=== PATIENT | female | born 1955 | race Caucasian/White ===

== ENCOUNTER 2020-02-11 13:47 | Emergency (ER) | payer OTHER, MEDICAID ==
[~2020-02-11] VITALS: Ht 160 cm; Wt 111.1 kg
[2020-02-11 14:14] VITALS: BP 137/62
[2020-02-11] MEDS ORDERED: KETOROLAC 30 MG/ML VIAL IM ONE (14:50)
[2020-02-11 16:29] VITALS: BP 137/62
== END 2020-02-11 16:29 | disposition home or self-care (01) ==
LOC: MED 13:47
DX: M54.5 Low back pain (principal); N39.0 Urinary tract infection, site not specified; E11.9 Type 2 diabetes mellitus without complications; I10 Essential (primary) hypertension; Z88.0 Allergy status to penicillin; Z88.5 Allergy status to narcotic agent; W18.30XA Fall on same level, unspecified, initial encounter; Y93.89 Activity, other specified; Y92.89 Other specified places as the place of occurrence of the external cause; Y99.8 Other external cause status
CPT/HCPCS: 72131; 81002; 87086; 99284; J1885; 96372

== ENCOUNTER 2022-05-02 12:52 | Inpatient (IN) | payer OTHER, MEDICAID ==
[~2022-05-02] VITALS: Ht 160 cm; Wt 106.6 kg
[2022-05-02 13:01] VITALS: BP 174/80
--- NOTE | 2022-05-02 13:05 | NUR ---
PATIENT BIBA TO BED 5
--- NOTE | 2022-05-02 13:20 | NUR ---
LAB AT BEDSIDE
--- NOTE | 2022-05-02 13:51 | NUR ---
XRAY AT BEDSIDE
[2022-05-02 14:03] LABS: ALBUMIN 2.8 g/dL (3.4-5.0); ANION GAP 11.6 (8-16); CARBON DIOXIDE 26.5 mmol/L (21-32); CREATININE 0.6 mg/dL (0.6-1.3); POTASSIUM 4.1 mmol/L (3.5-5.1); TOTAL BILIRUBIN 0.2 mg/dL (0.0-1.0)
[2022-05-02 14:05] LABS: BASOPHILS # (AUTO) 0.1 K/uL (0.00-0.22); EOSINOPHILS # (AUTO) 0.2 K/uL (0-0.4); EOSINOPHILS % (AUTO) 2.9 % (0.0-4.0); HEMATOCRIT 40.8 % (36-48); HEMOGLOBIN 13.2 g/dL (12.0-16.0); LYMPHOCYTES % (AUTO) 27.4 % (20.5-51.1); MEAN CORPUSCULAR HEMOGLOBIN 26 pg (27-31); MEAN CORPUSCULAR HGB CONC 32 g/dL (33-37); MEAN CORPUSCULAR VOLUME 78.8 fL (80-94); MONOCYTES # (AUTO) 0.7 K/uL (0.8-1.0); MONOCYTES % (AUTO) 9.8 % (1.7-9.3); NEUTROPHILS # (AUTO) 4.3 K/uL (1.8-7.7); NEUTROPHILS % (AUTO) 58.9 % (42.2-75.2); PLATELET COUNT (AUTO) 285 K/uL (140-450); RED BLOOD CELL COUNT(AUTO) 5.18 MIL/uL (4.20-5.40); RED CELL DISTRIBUTION WIDTH 17.7 % (11.6-13.7); WHITE BLOOD COUNT (AUTO) 7.3 K/uL (4.8-10.8)
[2022-05-02] MEDS ORDERED: CLONIDINE HYDROCHLORIDE 0.1 MG TAB PO ONE (14:15)
--- NOTE | 2022-05-02 14:44 | NUR ---
66YO FEMALE PT ROSALIND FROM HOME C/O DIZZINESS. PT STATES SHE HAS EPISODES OF DIZZINESS AND HEADACHES X3 DAYS, DENIES LOC . UPON ARRIVAL PT AMBULATORY W/ UNSTEADY GAIT. PT DENIES TAKING MEDICATION . PT REPORTS BEING COMPLIANT W/ MEDS BUT STATES SHE DID NOT HAVE BREAKFAST. DENIES CHEST PAIN, SOB OR N/V/D. 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 RESPIRATIONS EVEN AND UNLABORED. NO VISIBLE DISTRESS BED AT LOWEST POSITION , BED RAILS UP X2. HXDiabetes, Hx Hypertension ALLERGIEZ: MORPHINE, PNECILLIN Addendum: 05/03/22 at 1314 by PHSEP HX: ASTHMA, PTSD, GERD, HTN, STENT, DIABETES ALLERGIES: OPIOIDS, PENICILLIN
--- NOTE | 2022-05-02 14:55 | NUR ---
PT CHANGED INTO GOWN. URINE COLLECTED VIA BEDPAN.
[2022-05-02] MEDS ORDERED: PROCHLORPERAZINE 5 MG TAB PO ONE (15:45)
[2022-05-02 15:46] LABS: BILIRUBIN,URINE NEGATIVE (NEGATIVE); BLOOD, URINE NEGATIVE (NEGATIVE); COLOR,URINE YELLOW (YELLOW); LEUKOCYTE ESTERASE ,URINE 2+ (NEGATIVE); NITRITE, URINE NEGATIVE (NEGATIVE); UGLUCOSE NEGATIVE (NEGATIVE)
[2022-05-02 15:56] LABS: APPEARANCE,URINE HAZY (CLEAR)
[2022-05-02 16:24] LABS: RBC,URINE NONE SEEN /HPF (0-5); WBC,URINE 20-60 /HPF (0-5)
[2022-05-02] MEDS ORDERED: cefTRIAXone 1,000 MG VIAL ONE ×2 (17:21→18:23)
[2022-05-02] MEDS ORDERED: cefTRIAXone 1,000 MG in LIDOCAINE MPF 1% 2.1 ML IM ONE (17:55)
[2022-05-02] MEDS ORDERED: SULF-59 PO (17:58)
[2022-05-02] MEDS ORDERED: LIDOCAINE MPF 1% 5 ML ONE (18:23)
--- NOTE | 2022-05-02 19:14 | NUR ---
RECIEVED VERBAL ORDER FROM DR. BELLE FOR ADMIT ORDER, CARDIAC CONSULT AND CARDIAC DIET. ORDERS CARRIED OUT.
--- NOTE | 2022-05-02 19:22 | NUR ---
RAFAEL SWAB OBTAINED AND SENT TO LAB
--- NOTE | 2022-05-02 19:30 | NUR ---
REPORT GIVEN TO KOBY TOBIAS. ALL QUESTIONS ANSWERED. TRANSFER OF CARE AT THIS TIME
[2022-05-02] MEDS ORDERED: DOCUSATE SODIUM 100 MG GELCAP PO PRN (19:35)
[2022-05-02] MEDS ORDERED: POTASSIUM CHLORIDE 10 MEQ TABER PO PRN (19:35)
[2022-05-02] MEDS ORDERED: ONDANSETRON 4 MG/2 ML VIAL IVP PRN (19:35)
[2022-05-02] MEDS ORDERED: ZOLPIDEM 10 MG TAB PO PRN (19:35)
[2022-05-02] MEDS ORDERED: DEXTROSE 50% 50 ML SYR IVP PRN (19:40)
[2022-05-02] MEDS ORDERED: INSULIN LISPRO SLIDING SCALE 100 UNITS/ML VIAL SUBQ PRN (19:40)
[2022-05-02] MEDS ORDERED: CLONIDINE HYDROCHLORIDE 0.1 MG TAB PO PRN (19:45)
--- NOTE | 2022-05-02 20:00 | NUR ---
ASSISTED WITH POSITIONING FOR COMFORT
[2022-05-02] MEDS: lisinopriL 10 MG TAB PO SCH (20:20)
[2022-05-02] MEDS: BLOOD GLUCOSE MONITORING 1 DEV DEV FS SCH (21:32)
--- NOTE | 2022-05-02 23:39 | NUR ---
ASSISTED ONTO BEDPAN
[2022-05-03] MEDS ORDERED: MAG SULF 2000 MG/WATER PREMIX 50 ML IV PRN
--- NOTE | 2022-05-03 02:00 | NUR ---
RESTING COMFORTABLY WITH EYES CLOSED
--- NOTE | 2022-05-03 04:30 | NUR ---
AWAKE, UP TO W/C THEN TO BR, VOIDED THEN BACK TO BED AND MADE COMFORTABLE
[2022-05-03 06:53] LABS: BASOPHILS # (AUTO) 0.1 K/uL (0.00-0.22); EOSINOPHILS # (AUTO) 0.2 K/uL (0-0.4); HEMATOCRIT 38.1 % (36-48); HEMOGLOBIN 12.2 g/dL (12.0-16.0); LYMPHOCYTES # (AUTO) 1.8 K/uL (2.5-16.5); LYMPHOCYTES % (AUTO) 30.7 % (20.5-51.1); MEAN CORPUSCULAR HEMOGLOBIN 25 pg (27-31); MEAN CORPUSCULAR HGB CONC 32 g/dL (33-37); MEAN CORPUSCULAR VOLUME 78.8 fL (80-94); MONOCYTES # (AUTO) 0.6 K/uL (0.8-1.0); MONOCYTES % (AUTO) 9.9 % (1.7-9.3); NEUTROPHILS # (AUTO) 3.3 K/uL (1.8-7.7); NEUTROPHILS % (AUTO) 54.4 % (42.2-75.2); PLATELET COUNT (AUTO) 254 K/uL (140-450); RED BLOOD CELL COUNT(AUTO) 4.83 MIL/uL (4.20-5.40); RED CELL DISTRIBUTION WIDTH 17.7 % (11.6-13.7)
[2022-05-03 07:05] LABS: ANION GAP 10.6 (8-16); CARBON DIOXIDE 28.4 mmol/L (21-32); CREATININE 0.6 mg/dL (0.6-1.3)
--- NOTE | 2022-05-03 07:30 | NUR ---
REPORT RECEIVED FROM KOBY TOBIAS. ASSUMED CARE AT THIS TIME
[2022-05-03] MEDS: BLOOD GLUCOSE MONITORING 1 DEV DEV FS SCH ×4 (07:45→20:38)
--- NOTE | 2022-05-03 07:58 | NUR ---
pt provided w/ breakfast. pt awake and eating in bed
[2022-05-03] MEDS: lisinopriL 10 MG TAB PO SCH (09:00)
[2022-05-03] MEDS ORDERED: DEXL60EC PO (09:46)
[2022-05-03] MEDS ORDERED: PRAS10TA8 PO (09:46)
[2022-05-03] MEDS ORDERED: DOCU-2 PO (09:46)
[2022-05-03] MEDS ORDERED: REPA2TAB9 PO (09:46)
--- NOTE | 2022-05-03 10:18 | NUR ---
MD BELLE CONTACTED, MADE AWARE OF PT MED REFUSAL AND UPDATED ON PT STATUS. VERBAL ORDERS ADDED AND CARRIED OUT 1000ml NS @50ML/HR- ONCE 0.5 ATIVAN PRN Q4HRS
--- NOTE | 2022-05-03 10:30 | NUR ---
MD BELLE [phone]
[2022-05-03] MEDS: LORazepam 0.5 MG TAB PO PRN ×2 (11:13→19:58)
[2022-05-03] MEDS: NACL 0.9% 1,000 ML IV SCH (11:20)
--- NOTE | 2022-05-03 12:15 | NUR ---
PT PROVIDED W/ LUNCH. PT AWAKE , REPOSITIONED AND EATING IN BED.
--- NOTE | 2022-05-03 14:13 | NUR ---
PT WHEELCHAIR ASSISTED TO RESTROOM.
--- NOTE | 2022-05-03 14:20 | NUR ---
PT WHEELCHAIR ASSISTED BACK TO ROOM
[2022-05-03] MEDS ORDERED: hydrALAZINE 25 MG TAB PO PRN (15:20)
--- NOTE | 2022-05-03 16:20 | NUR ---
PUREWICK IN PLACE- CONTINUOUS MEDIUM SUCTIONING .
[2022-05-03] MEDS: ACETAMINOPHEN 325 MG TAB PO PRN (17:13)
--- NOTE | 2022-05-03 17:18 | NUR ---
PT REPOSITIONED AND PROVIDED WITH JUICE.
[2022-05-03] MEDS ORDERED: cefTRIAXone 1,000 MG VIAL ONE (18:09)
--- NOTE | 2022-05-03 18:30 | NUR ---
PT PROVIDED WITH LUNCH. PT REPOSITIONED AND EATING IN BED
--- NOTE | 2022-05-03 18:45 | NUR ---
Stephen arriola in ED - 05/03/22 at 1915 by PHSEP INFILTRATION NOTED AT IV SITE. IV REMOVED
--- NOTE | 2022-05-03 18:45 | NUR ---
INFILTRATION NOTED AT IV SITE. IV REMOVED. PT DENIES PAIN
--- NOTE | 2022-05-03 19:15 | NUR ---
REPORT GIVEN TO TONY TOBIAS. ALL QUESTIONS ANSWERED. TRANSFER OF CARE AT THIS TIME
--- NOTE | 2022-05-03 19:18 | NUR ---
pt is awake and alert. denies pain and discomfort at this time. all needs met. bed locked in lowest position, side rails x2 for safety.
--- NOTE | 2022-05-03 19:40 | NUR ---
charge nurse at bedside for iv attempt.
--- NOTE | 2022-05-03 20:26 | NUR ---
pt placed on a more comfortable bed. pt states she feels much better with that bed. all needs met at this time. bed locked in lowest position, side rails x for safety.
[2022-05-03] MEDS: VALSARTAN 80 MG TAB PO SCH (20:39)
--- NOTE | 2022-05-03 20:43 | NUR ---
bp 108/85 hr 46, bp meds held.
--- NOTE | 2022-05-03 20:43 | NUR ---
pt refused heparin. pt states "i dont take that, that's too strong".
--- NOTE | 2022-05-03 22:14 | NUR ---
pt appears to be resting with eyes closed. opens to sound. equal rise and fall of chest wall. pt continues on laboratory monitor. all needs met at this time. bed locked in lowest position, side rails x2 for safety.
--- NOTE | 2022-05-04 01:10 | NUR ---
pt appears to be resting with eyes closed. opens to sound. equal rise and fall of chest wall. pt continues on quality assurance monitor. all needs met at this time. bed locked in lowest position, side rails x2 for safety.
[2022-05-04] MEDS: ACETAMINOPHEN 325 MG TAB PO PRN (03:00)
--- NOTE | 2022-05-04 03:09 | NUR ---
pt is awake and alert talking to bed 06.
--- NOTE | 2022-05-04 05:19 | NUR ---
Stephen arriola in [facility] - 05/04/22 at 0520 by MEDHUBERT attempted to draw morning labs. stewart singh from lab updated.
--- NOTE | 2022-05-04 05:20 | NUR ---
attempted to draw morning labs. unable, johnathan from lab updated.
--- NOTE | 2022-05-04 05:40 | NUR ---
lab at bedside.
[2022-05-04 06:13] LABS: BASOPHILS % (AUTO) 0.8 % (0.0-2.0); EOSINOPHILS # (AUTO) 0.3 K/uL (0-0.4); EOSINOPHILS % (AUTO) 4.8 % (0.0-4.0); HEMATOCRIT 38.8 % (36-48); HEMOGLOBIN 12.5 g/dL (12.0-16.0); LYMPHOCYTES % (AUTO) 33.4 % (20.5-51.1); MEAN CORPUSCULAR HEMOGLOBIN 26 pg (27-31); MEAN CORPUSCULAR HGB CONC 32 g/dL (33-37); MEAN CORPUSCULAR VOLUME 79.1 fL (80-94); MONOCYTES # (AUTO) 0.6 K/uL (0.8-1.0); PLATELET COUNT (AUTO) 271 K/uL (140-450); RED BLOOD CELL COUNT(AUTO) 4.91 MIL/uL (4.20-5.40); RED CELL DISTRIBUTION WIDTH 17.9 % (11.6-13.7); WHITE BLOOD COUNT (AUTO) 5.9 K/uL (4.8-10.8)
--- NOTE | 2022-05-04 06:23 | NUR ---
pt appears to be resting with eyes closed. opens to sound. equal rise and fall of chest wall. 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 all needs met at this time. bed locked in lowest position, side rails x2 for safety.
[2022-05-04] MEDS: NACL 0.9% 1,000 ML IV SCH (06:33)
[2022-05-04 06:40] LABS: ANION GAP 11.5 (8-16); CARBON DIOXIDE 27.6 mmol/L (21-32); CREATININE 0.7 mg/dL (0.6-1.3); POTASSIUM 4.1 mmol/L (3.5-5.1)
--- NOTE | 2022-05-04 07:26 | NUR ---
Pt report given to sina olivas. Transfer of care at this time.
--- NOTE | 2022-05-04 07:28 | NUR ---
Report received from JATINDER Douglas for transfer of care.
--- NOTE | 2022-05-04 07:31 | NUR ---
Stephen arriola in [facility] - 05/04/22 at 0831 by LINDA Report recieved from JATINDER Douglas for transfer of care.
--- NOTE | 2022-05-04 07:32 | NUR ---
Patient ambulated to the restroom with steady gait.
[2022-05-04] MEDS: BLOOD GLUCOSE MONITORING 1 DEV DEV FS SCH ×4 (07:49→21:27)
--- NOTE | 2022-05-04 07:50 | NUR ---
Patient appears to be resting comfortably in bed. Respirations even and unlabored.
--- NOTE | 2022-05-04 08:42 | NUR ---
Patient will be admitted to care of Dr. Ly. Admited to Telemetry. Will go to room 106-B. Belongings list completed. Report to JATINDER Hill.
--- NOTE | 2022-05-04 08:45 | NUR ---
PT ARRIVED IN THE UNIT IN BED.[id number]
--- NOTE | 2022-05-04 09:01 | NUR ---
PATIENT HAS BEEN SCREENED AND CATEGORIZED MODERATE NUTRITION RISK. PATIENT WILL BE SEEN WITHIN 3-5 DAYS OF ADMISSION. [address] Addendum: 05/04/22 at [address] FNS CONSULT HAS BEEN RECEIVED FOR MALNUTRITION. PATIENT HAS BEEN RE-SCREENED HIGH RISK AND WILL BE SEEN WITHIN 1-2 DAYS OF RECEIVING THE FNS CONSULT. WILLIAM BARRIOS RD
--- NOTE | 2022-05-04 09:09 | NUR ---
The patient's care was reviewed and supervised by Rubi Nuñez, RN, RN.
[2022-05-04] MEDS: PANTOPRAZOLE 40 MG INJ VIAL IVP SCH (09:53)
[2022-05-04] MEDS: VALSARTAN 80 MG TAB PO SCH ×2 (09:53→21:44)
[2022-05-04] MEDS: ECOTRIN 81 MG TABEC PO SCH (09:54)
--- NOTE | 2022-05-04 12:00 | NUR ---
PT REFUSED HEPARIN, FROM MORNING SHIFT. [id number]
--- NOTE | 2022-05-04 12:03 | NUR ---
DC PLANNING SW ATTEMPTED TO MEET PATIENT, HOWEVER, DIRECTOR OF PHYSICIAN PRACTICES AT BEDSIDE. SW TO FOLLOW UP. Addendum: 05/04/22 at 1622 by Donna REDDY SW MET WITH PT AT BEDSIDE TO GATHER COLLATERAL INFORMATION. PT REPORTS LIVING IN GROUND FLOOR APT WITH HER AT THE ADDRESS LISTED ON FILE. PATIENT DENIED HAVING AD IN PLACE AND ACCEPTED AD OFFERED BY SW. PATIENT REPORTS MEETING WITH HER TEAM OF DOCTORS CONSISTENTLY. PT REPORTS BEING MEDICATION COMPLIANT AND DENIES BARRIERS TO ACCESSING NEEDED MEDICATIONS. PT REPORTS THAT SHE IS RECEIVING PHYSICAL THX SERVICES W/THERESA JOHNSON. PT REQUIRES ASSISTANCE WITH ADL'S AND UTILIZES FWW AND BATH CHAIR. PT GRANDDAUGHTER IS HER [employer] WORKER AND IS PERMITTED 20HRS/WEEKLY. PT REPORTS ADEQUATE FAMILY SUPPORT AND DENIES FOOD INSECURITY. PATIENT REPORTS THAT GRANDSON OR NIECE WILL PROVIDE TRANSPORTATION WHEN CLEARED FOR DC. SW INQUIRED ON ADDITIONAL RESOURCES NEEDED, PATIENT DECLINED AT THIS TIME.
[2022-05-04 12:13] VITALS: BP 138/60
--- NOTE | 2022-05-04 14:51 | NUR ---
DC PLANNING: THE PATIENT WAS BIBA FROM HOME WITH C/O DIZZINESS, LIGHTHEADEDNESS AND SOB, 2 WEEK H/O OF HTN AND HEADACHE. H/O DM AND HTN, BNP 330, EKG SHOWS SINUS JULIAN, B/P 174/80. UA+, PATIENT GIVEN ROCEPHIN AND CATAPRES IN THE ED. ORDERS FOR CARDIOLOGY CONSULT, H/O CAD WITH CORONARY STENTING, HTN, DM AND DYSLIPIDEMIA. CM SPOKE WITH THE PATIENT AT BEDSIDE AND CONFIRMED HER ADDRESS AND PHONE NUMBER. SHE LIVES WITH HER IN A GROUND FLOOR APARTMENT AND HAS AN [facility] WORKER WHO IS HER NIECE EMORY, 20 HOURS/WEEK. SHE HAS DME OF A 4 WHEEL WALKER AND SHOWER BENCH AND SEES HER PMD REGULARLY. SHE ALSO SEES DR MIRANDA, ACCOUNTS PAYABLE LEAD, DR CALLES FOR CARDIOLOGY, DR KELLY IN [place]. SHE HAS BEEN GOING TO [facility] FOR THE LAST TWO WEEKS FOR P.T., NO HOME HEALTH. HER OR NIECE WILL PROVIDE TRANSPORT HOME WHEN THE PATIENT IS CLINICALLY STABLE, CARLOS WILL FOLLOW.
[2022-05-04] MEDS: LORazepam 0.5 MG TAB PO PRN (14:53)
[2022-05-04 16:00] VITALS: BP 150/65
--- NOTE | 2022-05-04 16:39 | NUR ---
05/04/22 RD INITIAL ASSESSMENT COMPLETED PLEASE REFER TO NUTRITION ASSESSMENT UNDER CARE ACTIVITY FOR ESTIMATED NUTRITIONAL NEEDS. 1. RECOMMEND CARDIAC+CCHO 60GM DIET TOLERATED 2. PROVIDED NUTRITION EDUCATION ON DIABETES, CELIAC DISEASE AND ACID REFLUX 3. RD TO FOLLOW-UP 7 DAYS, LOW RISK WILLIAM BARRIOS RD Addendum: 05/04/22 at [address] RECOMMEND GLUTEN-FREE DIET WELL D/T CELIAC DISEASE
--- NOTE | 2022-05-04 19:35 | NUR ---
RECEIVED PATIENT FROM AM NURSE FOR CONTINUITY OF CARE.PT IS STABLE
[2022-05-04 20:00] VITALS: BP 135/60
--- NOTE | 2022-05-04 21:00 | NUR ---
PT REFUSED HEPARIN SODIUM. EXPLAINED THE RISK AND BENEFITS BUT PT STILL REFUSED
--- NOTE | 2022-05-05 01:30 | NUR ---
PATIENT SLEEPING AT THIS TIME,NO DISTRESS NOTED
[2022-05-05] MEDS: NACL 0.9% 1,000 ML IV SCH (01:58)
[2022-05-05 04:00] VITALS: BP 142/49
--- NOTE | 2022-05-05 06:15 | NUR ---
PATIENT IS AWAKE, ASSISTED TO BEDSIDE COMMODE,TOLERATED WELL ,NO DISTRESS NOTED
[2022-05-05] MEDS: BLOOD GLUCOSE MONITORING 1 DEV DEV FS SCH (06:46)
--- NOTE | 2022-05-05 07:24 | NUR ---
RECEIVED ENDORSEMENT FROM MEAT INSPECTOR NURSE FOR CONTINUITY OF CARE. PATIENT ASLEEP BUT ABLE TO WAKE UP WHEN CALLED DENIES ANY DISCOMFORT. RESPIRATION EVEN AND NOT LABORED NO SHORTNESS OF BREATH ON ROOM AIR. IV SITE ON RIGHT UPPER ARM SELIN 24 RUNNING NS AT 50 CC/HOUR. NO SIGN AND SYMPTOMS OF INFILTRATE OR SWELLING. CALL LIGHT WITH IN EASY REACH.
[2022-05-05 07:32] LABS: BASOPHILS % (AUTO) 0.8 % (0.0-2.0); EOSINOPHILS # (AUTO) 0.3 K/uL (0-0.4); EOSINOPHILS % (AUTO) 5.3 % (0.0-4.0); HEMATOCRIT 37.6 % (36-48); LYMPHOCYTES # (AUTO) 1.9 K/uL (2.5-16.5); LYMPHOCYTES % (AUTO) 31.4 % (20.5-51.1); MEAN CORPUSCULAR HEMOGLOBIN 25 pg (27-31); MEAN CORPUSCULAR HGB CONC 32 g/dL (33-37); MEAN CORPUSCULAR VOLUME 79.8 fL (80-94); MONOCYTES # (AUTO) 0.6 K/uL (0.8-1.0); MONOCYTES % (AUTO) 9.5 % (1.7-9.3); NEUTROPHILS # (AUTO) 3.2 K/uL (1.8-7.7); PLATELET COUNT (AUTO) 275 K/uL (140-450); RED BLOOD CELL COUNT(AUTO) 4.71 MIL/uL (4.20-5.40); RED CELL DISTRIBUTION WIDTH 17.4 % (11.6-13.7)
[2022-05-05 07:34] LABS: ANION GAP 12.1 (8-16); CREATININE 0.6 mg/dL (0.6-1.3); POTASSIUM 4.1 mmol/L (3.5-5.1)
[2022-05-05 08:00] VITALS: BP 121/55
--- NOTE | 2022-05-05 08:00 | NUR ---
Patient's Plan of Care was discussed and reviewed with CLINICAL TEAM MANAGER: JASMINE. WILL CONTINUE WITH CURRENT POC.
[2022-05-05] MEDS: PANTOPRAZOLE 40 MG INJ VIAL IVP SCH (09:02)
--- NOTE | 2022-05-05 09:13 | NUR ---
PATIENT REFUSED HEPARIN EVEN WITH ENCOURAGEMENT AND EXPLANATION OF RISK AND BENEFIT OFFERED 3X.
--- NOTE | 2022-05-05 09:17 | NUR ---
PATIENT COMPLAIN OF IRRITATION AND RASH ON ABDOMINAL FOLD AND GROIN AREA REQUESTING FOR NYSTATIN POWDER INFORM DR. CARDENAS WAITING FOR RESPONSE.
[2022-05-05] MEDS: ECOTRIN 81 MG TABEC PO SCH (09:29)
[2022-05-05] MEDS: VALSARTAN 80 MG TAB PO SCH (09:31)
[2022-05-05] MEDS ORDERED: SULF-59 PO (10:52)
[2022-05-05] MEDS ORDERED: VALS80TA2 PO (10:52)
[2022-05-05] MEDS ORDERED: ASPI-1822 PO (10:52)
[2022-05-05 10:54] VITALS: BP 121/55
--- NOTE | 2022-05-05 11:15 | NUR ---
REFUSED BLOOD SUGAR CHECKED.
[2022-05-05] MEDS ORDERED: MAGNESIUM OXIDE 400 MG TAB PO SCH (11:22)
[2022-05-05] MEDS ORDERED: MAGNESIUM OXIDE 400 MG TAB PO ONE (11:25)
--- NOTE | 2022-05-05 12:00 | NUR ---
PATIENT ALERT ORIENTED ON STABLE CONDITION NO DIZZINESS NOTED. MAG OX GIVEN AND NYSTATIN POWDER APPLIED TO AFFECTED AREA. DISCHARGE PACKET GIVE WITH INSTRUCTION VERBALIZED UNDERSTANDING. NAME BAND AND IV REMOVED WITH CATHETER INTACT. ALL BELONGING TAKE N BY PATIENT. WHEELED OUTSIDE TO HER NIECE PRIVATE VEHICLE.
[2022-05-05] MEDS ORDERED: NYSTATIN POW 100 MU/GM 15 GM BTL TP SCH ×2 (21:00)
== END 2022-05-05 12:00 | disposition home or self-care (01) | DRG 308 ==
LOC: MED 12:52 → MTU 19:14
PROVIDERS: ADMIT Family Medicine; ATTEND Family Medicine
DX: R00.1 Bradycardia, unspecified (principal); E43 Unspecified severe protein-calorie malnutrition; N39.0 Urinary tract infection, site not specified; Z68.41 Body mass index [BMI] 40.0-44.9, adult; I10 Essential (primary) hypertension; I25.10 Atherosclerotic heart disease of native coronary artery without angina pectoris; Z20.822 Contact with and (suspected) exposure to COVID-19; E11.9 Type 2 diabetes mellitus without complications; Z88.5 Allergy status to narcotic agent; Z88.0 Allergy status to penicillin; Z91.018 Allergy to other foods; Z79.899 Other long term (current) drug therapy
CPT/HCPCS: 36415; 71045; 80048; 80053; 81001; 82948; 83735; 83880; 84484; 85025; 87081; 87086; 93005; 96372; 96374; 99285; C9113; J0696; J1644; J2001; J7060; Q0092; Q0163; Q0164

== ENCOUNTER 2023-08-15 08:58 | Emergency (ER) | payer OTHER, MEDICAID ==
[~2023-08-15] VITALS: Ht 160 cm; Wt 99.8 kg
[~2023-08-15 08:58] MED LIST: ASPI-1822 PO; DEXL60EC PO; DOCU-2 PO; PRAS10TA8 PO; REPA2TAB9 PO; SULF-59 PO; VALS80TA2 PO
[2023-08-15 08:59] VITALS: PULSE 89; RESP 18; TEMP 98.2; O2SAT 98
[2023-08-15 09:36] LABS: BASOPHILS # (AUTO) 0.1 K/uL (0.00-0.22); BASOPHILS % (AUTO) 1.1 % (0.0-2.0); EOSINOPHILS # (AUTO) 0.4 K/uL (0-0.4); EOSINOPHILS % (AUTO) 5.8 % (0.0-4.0); HEMATOCRIT 37.8 % (36-48); HEMOGLOBIN 12.1 g/dL (12.0-16.0); LYMPHOCYTES % (AUTO) 30.6 % (20.5-51.1); MEAN CORPUSCULAR HEMOGLOBIN 27 pg (27-31); MEAN CORPUSCULAR HGB CONC 32 g/dL (33-37); MEAN CORPUSCULAR VOLUME 83.2 fL (80-94); MONOCYTES # (AUTO) 0.6 K/uL (0.8-1.0); MONOCYTES % (AUTO) 8.4 % (1.7-9.3); NEUTROPHILS # (AUTO) 3.6 K/uL (1.8-7.7); NEUTROPHILS % (AUTO) 54.1 % (42.2-75.2); PLATELET COUNT (AUTO) 293 K/uL (140-450); RED BLOOD CELL COUNT(AUTO) 4.54 MIL/uL (4.20-5.40); RED CELL DISTRIBUTION WIDTH 14.9 % (11.6-13.7); WHITE BLOOD COUNT (AUTO) 6.6 K/uL (4.8-10.8)
[2023-08-15] MEDS ORDERED: ONDANSETRON 4 MG/2 ML VIAL IVP ONE ×2 (09:50→14:05)
[2023-08-15 10:23] LABS: ALANINE AMINOTRANSFERASE 15 U/L (12-78); ALBUMIN 2.6 g/dL (3.4-5.0); ALKALINE PHOSPHATASE 85 U/L (50-136); ANION GAP 10.6 (8-16); ASPARTATE AMINOTRANSFERASE 13 U/L (15-37); CALCIUM 8.5 mg/dL (8.5-10.1); CARBON DIOXIDE 29.1 mmol/L (21-32); CHLORIDE 102 mmol/L (98-107); CREATINE KINASE, TOTAL 29 U/L (26-192); CREATININE 0.8 mg/dL (0.6-1.3); GFR ARICAN-AMERICAN 91 mL/min (>90); GFR NON ARICAN-AMERICAN 75 mL/min (>90); GLUCOSE 196 mg/dL (74-106); POTASSIUM 4.7 mmol/L (3.5-5.1); SODIUM SERUM 137 mmol/L (136-145); TOTAL BILIRUBIN 0.4 mg/dL (0.0-1.0); TOTAL PROTEIN, SERUM 6.5 g/dL (6.4-8.2); UREA NITROGEN, BLOOD 19 mg/dL (7-18)
[2023-08-15] MEDS ORDERED: ONDANSETRON 4 MG/2 ML VIAL ONE (11:15)
[2023-08-15 12:24] LABS: APPEARANCE,URINE CLEAR (CLEAR); BILIRUBIN,URINE NEGATIVE (NEGATIVE); BLOOD, URINE NEGATIVE (NEGATIVE); COLOR,URINE YELLOW (YELLOW); LEUKOCYTE ESTERASE ,URINE TRACE (NEGATIVE); NITRITE, URINE NEGATIVE (NEGATIVE); PROTEIN,URINE NEGATIVE (NEGATIVE); UGLUCOSE NEGATIVE (NEGATIVE); UROBILINOGEN,URINE 0.2 EU/dL (0.2 - 1)
[2023-08-15] MEDS ORDERED: MORPHINE SULFATE 4 MG/ML SYR IVP ONE (13:45)
[2023-08-15] MEDS ORDERED: ACET-10509 PO (13:50)
[2023-08-15 15:41] VITALS: BP 122/64; PULSE 93; RESP 14; TEMP 98.2; O2SAT 100
== END 2023-08-15 15:41 | disposition home or self-care (01) ==
LOC: MED 08:58
DX: S93.602A Unspecified sprain of left foot, initial encounter (principal); S80.12XA Contusion of left lower leg, initial encounter; E11.9 Type 2 diabetes mellitus without complications; I10 Essential (primary) hypertension; E78.00 Pure hypercholesterolemia, unspecified; Z90.710 Acquired absence of both cervix and uterus; Z79.899 Other long term (current) drug therapy; Z79.82 Long term (current) use of aspirin; Z79.2 Long term (current) use of antibiotics; Z88.0 Allergy status to penicillin; Z88.5 Allergy status to narcotic agent; Z91.02 Food additives allergy status; W18.39XA Other fall on same level, initial encounter; Y93.89 Activity, other specified; Y92.002 Bathroom of unspecified non-institutional (private) residence as the place of occurrence of the external cause; Y99.8 Other external cause status
CPT/HCPCS: 36415; 72110; 72170; 73562; 73630; 80053; 81003; 82550; 84484; 85025; 93005; 93971; 96374; 96375; 96376; 99285; J2270; J2405; Q0092

== ENCOUNTER 2023-09-12 13:12 | Emergency (ER) | payer OTHER, MEDICAID ==
[~2023-09-12] VITALS: Ht 160 cm; Wt 97.5 kg
[~2023-09-12 13:12] MED LIST changes: +ACET-10509 PO
[2023-09-12 15:12] VITALS: BP 112/64; PULSE 74; RESP 18; O2SAT 95
[2023-09-12] MEDS ORDERED: LACT-103 PO (16:20)
[2023-09-12] MEDS ORDERED: SODIUM PHOSPHATE 118 ML ENEM RC ONE (16:25)
[2023-09-12] MEDS ORDERED: KETOROLAC 60 MG/2 ML VIAL IM ONE (19:50)
[2023-09-12 20:54] VITALS: BP 151/76; PULSE 78; RESP 17; TEMP 97.3; O2SAT 96
== END 2023-09-12 20:54 | disposition home or self-care (01) ==
LOC: MED 13:12
DX: K59.00 Constipation, unspecified (principal); I11.9 Hypertensive heart disease without heart failure; E11.9 Type 2 diabetes mellitus without complications; Z79.4 Long term (current) use of insulin; Z79.899 Other long term (current) drug therapy; Z88.0 Allergy status to penicillin; Z88.8 Allergy status to other drugs, medicaments and biological substances
CPT/HCPCS: 74176; 96372; 99285; J1885

== ENCOUNTER 2023-10-22 15:07 | Inpatient (IN) | payer OTHER, MEDICAID ==
[~2023-10-22] VITALS: Ht 160 cm; Wt 92.5 kg
[~2023-10-22 15:07] MED LIST changes: +LACT-103 PO
[2023-10-22 15:15] VITALS: BP 161/51; PULSE 84; RESP 16; TEMP 98.1; O2SAT 98
[2023-10-22] MEDS: LEVOFLOXACIN 500 MG/D5W PREMIX 100 ML IV ONE (15:53)
[2023-10-22] MEDS: NACL 0.9% 1,000 ML IV SCH ×2 (15:54→17:43)
[2023-10-22 15:56] LABS: BASOPHILS # (AUTO) 0.1 K/uL (0.00-0.22); BASOPHILS % (AUTO) 0.8 % (0.0-2.0); EOSINOPHILS # (AUTO) 0.3 K/uL (0-0.4); EOSINOPHILS % (AUTO) 3.7 % (0.0-4.0); HEMATOCRIT 39.6 % (36-48); HEMOGLOBIN 13.4 g/dL (12.0-16.0); LYMPHOCYTES # (AUTO) 2.1 K/uL (2.5-16.5); LYMPHOCYTES % (AUTO) 31.1 % (20.5-51.1); MEAN CORPUSCULAR HEMOGLOBIN 28 pg (27-31); MEAN CORPUSCULAR HGB CONC 34 g/dL (33-37); MEAN CORPUSCULAR VOLUME 82.5 fL (80-94); MONOCYTES # (AUTO) 0.6 K/uL (0.8-1.0); MONOCYTES % (AUTO) 8.7 % (1.7-9.3); NEUTROPHILS # (AUTO) 3.8 K/uL (1.8-7.7); NEUTROPHILS % (AUTO) 55.7 % (42.2-75.2); PLATELET COUNT (AUTO) 317 K/uL (140-450); RED CELL DISTRIBUTION WIDTH 14.8 % (11.6-13.7); WHITE BLOOD COUNT (AUTO) 6.8 K/uL (4.8-10.8)
[2023-10-22 16:07] LABS: ANION GAP 9.1 (8-16); CARBON DIOXIDE 29.9 mmol/L (21-32); CREATININE 0.6 mg/dL (0.6-1.3)
[2023-10-22 16:16] LABS: LACTIC ACID 1.5 mmol/L (0.4-2.0)
[2023-10-22] MEDS: LORazepam 1 MG TAB PO PRN (17:43)
[2023-10-22] MEDS: KETOROLAC 30 MG/ML VIAL IVP ONE (17:45)
[2023-10-22 19:07] LABS: APPEARANCE,URINE CLEAR (CLEAR); BILIRUBIN,URINE NEGATIVE (NEGATIVE); BLOOD, URINE NEGATIVE (NEGATIVE); COLOR,URINE YELLOW (YELLOW); LEUKOCYTE ESTERASE ,URINE NEGATIVE (NEGATIVE); NITRITE, URINE POSITIVE (NEGATIVE); PROTEIN,URINE NEGATIVE (NEGATIVE); UGLUCOSE NEGATIVE (NEGATIVE); UROBILINOGEN,URINE 0.2 EU/dL (0.2 - 1)
[2023-10-22 19:40] LABS: BACTERIA,URINE 10-30 (MOD) /HPF (None Seen); RBC,URINE 0-5 /HPF (0-5); WBC,URINE 0-5 /HPF (0-5)
[2023-10-22 19:41] LABS: SQUAMOUS EPITHELIAL CELL,UR 4-10 (MOD) /LPF (0-3 (FEW))
[2023-10-22 19:49] VITALS: O2SAT 98
[2023-10-22 20:29] LABS: FLU A ANTIGEN negative (NEGATIVE); FLU B ANTIGEN NEGATIVE (NEGATIVE)
[2023-10-22] MEDS: ZOLPIDEM 5 MG TAB PO PRN (22:40)
[2023-10-23 01:00] VITALS: BP 144/42; PULSE 87; RESP 18; TEMP 98.7; O2SAT 94
[2023-10-23 01:13] VITALS: PULSE 74; RESP 18; O2SAT 98
[2023-10-23 04:00] VITALS: BP 155/47; PULSE 72; RESP 17; TEMP 98; O2SAT 95
[2023-10-23 08:00] VITALS: BP 148/47; PULSE 65; RESP 16; RESP 18; TEMP 97.2; O2SAT 95
[2023-10-23 08:15] LABS: BASOPHILS % (AUTO) 0.8 % (0.0-2.0); EOSINOPHILS # (AUTO) 0.4 K/uL (0-0.4); EOSINOPHILS % (AUTO) 6.9 % (0.0-4.0); HEMATOCRIT 36.1 % (36-48); LYMPHOCYTES # (AUTO) 2.1 K/uL (2.5-16.5); LYMPHOCYTES % (AUTO) 33.6 % (20.5-51.1); MEAN CORPUSCULAR HEMOGLOBIN 28 pg (27-31); MEAN CORPUSCULAR HGB CONC 33 g/dL (33-37); MEAN CORPUSCULAR VOLUME 83.4 fL (80-94); MONOCYTES # (AUTO) 0.7 K/uL (0.8-1.0); MONOCYTES % (AUTO) 10.6 % (1.7-9.3); NEUTROPHILS % (AUTO) 48.1 % (42.2-75.2); PLATELET COUNT (AUTO) 280 K/uL (140-450); RED BLOOD CELL COUNT(AUTO) 4.33 MIL/uL (4.20-5.40); RED CELL DISTRIBUTION WIDTH 14.8 % (11.6-13.7); WHITE BLOOD COUNT (AUTO) 6.3 K/uL (4.8-10.8)
[2023-10-23 08:42] LABS: ALBUMIN 2.1 g/dL (3.4-5.0); ANION GAP 9.3 (8-16); CALCIUM 8.5 mg/dL (8.5-10.1); CARBON DIOXIDE 28.4 mmol/L (21-32); CREATININE 0.5 mg/dL (0.6-1.3); POTASSIUM 3.7 mmol/L (3.5-5.1); TOTAL BILIRUBIN 0.3 mg/dL (0.0-1.0); TOTAL PROTEIN, SERUM 5.9 g/dL (6.4-8.2)
[2023-10-23] MEDS ORDERED: DEXTROSE 50% 50 ML SYR IVP PRN (09:35)
[2023-10-23] MEDS: DOCUSATE SODIUM 100 MG GELCAP PO SCH (09:39)
[2023-10-23] MEDS: VALSARTAN 80 MG TAB PO SCH (10:19)
[2023-10-23] MEDS: PANTOPRAZOLE 40 MG INJ VIAL IVP SCH (10:31)
[2023-10-23] MEDS ORDERED: MAGNESIUM HYDROXIDE 2400 MG/30 ML UDC PO PRN ×3 (11:15→14:55)
[2023-10-23] MEDS: BLOOD GLUCOSE MONITORING 1 DEV DEV FS SCH (11:41)
[2023-10-23 16:00] VITALS: BP 170/62; PULSE 68; RESP 18; TEMP 97.5; O2SAT 95
[2023-10-23] MEDS: MAGNESIUM HYDROXIDE 2400 MG/30 ML UDC PO PRN (16:05)
[2023-10-23] MEDS: CLOPIDOGREL 75 MG TAB PO SCH (16:05)
[2023-10-23] MEDS: hydrALAZINE 25 MG TAB PO PRN (16:08)
[2023-10-23] MEDS: amLODIPine 5 MG TAB PO SCH (17:04)
[2023-10-23] MEDS: LEVOFLOXACIN 500 MG/D5W PREMIX 100 ML IV SCH (17:06)
[2023-10-23 20:00] VITALS: PULSE 75; RESP 17; O2SAT 95
[2023-10-23] MEDS: NYSTATIN POW 100 MU/GM 15 GM BTL TP SCH (21:00)
[2023-10-24] VITALS: BP 135/45; PULSE 75; RESP 17; TEMP 98.5; O2SAT 95
[2023-10-24 06:09] LABS: BASOPHILS # (AUTO) 0.1 K/uL (0.00-0.22); BASOPHILS % (AUTO) 0.8 % (0.0-2.0); EOSINOPHILS # (AUTO) 0.6 K/uL (0-0.4); EOSINOPHILS % (AUTO) 8.5 % (0.0-4.0); HEMATOCRIT 35.5 % (36-48); HEMOGLOBIN 11.7 g/dL (12.0-16.0); LYMPHOCYTES # (AUTO) 2.4 K/uL (2.5-16.5); LYMPHOCYTES % (AUTO) 33.5 % (20.5-51.1); MEAN CORPUSCULAR HEMOGLOBIN 27 pg (27-31); MEAN CORPUSCULAR HGB CONC 33 g/dL (33-37); MEAN CORPUSCULAR VOLUME 83.4 fL (80-94); MONOCYTES # (AUTO) 0.8 K/uL (0.8-1.0); MONOCYTES % (AUTO) 10.3 % (1.7-9.3); NEUTROPHILS # (AUTO) 3.4 K/uL (1.8-7.7); NEUTROPHILS % (AUTO) 46.9 % (42.2-75.2); PLATELET COUNT (AUTO) 285 K/uL (140-450); RED BLOOD CELL COUNT(AUTO) 4.25 MIL/uL (4.20-5.40); RED CELL DISTRIBUTION WIDTH 14.5 % (11.6-13.7); WHITE BLOOD COUNT (AUTO) 7.3 K/uL (4.8-10.8)
[2023-10-24 06:40] LABS: ANION GAP 9.2 (8-16); CALCIUM 8.5 mg/dL (8.5-10.1); CARBON DIOXIDE 26.5 mmol/L (21-32); CREATININE 0.4 mg/dL (0.6-1.3); POTASSIUM 3.7 mmol/L (3.5-5.1); TOTAL BILIRUBIN 0.2 mg/dL (0.0-1.0); TOTAL PROTEIN, SERUM 5.9 g/dL (6.4-8.2)
[2023-10-24 08:00] VITALS: BP 140/45; PULSE 61; PULSE 80; RESP 18; TEMP 98.4; O2SAT 97; O2SAT 98
[2023-10-24] MEDS ORDERED: SODIUM PHOSPHATE 118 ML ENEM RC SCH (09:55)
[2023-10-24] MEDS: INSULIN LISPRO SLIDING SCALE 100 UNITS/ML VIAL SUBQ PRN (12:02)
[2023-10-24] MEDS: ONDANSETRON 4 MG/2 ML VIAL IVP PRN (13:51)
[2023-10-24] MEDS: MORPHINE SULFATE 2 MG/ML SYR IVP PRN (13:53)
[2023-10-24 16:00] VITALS: BP 134/41; PULSE 71; RESP 18; TEMP 97.8; O2SAT 95
[2023-10-24 20:00] VITALS: PULSE 79; RESP 17; O2SAT 93
[2023-10-25] VITALS: BP 147/41; PULSE 79; RESP 17; TEMP 98.4; O2SAT 93
[2023-10-25] MEDS: SODIUM PHOSPHATE 118 ML ENEM RC ONE (00:28)
[2023-10-25 06:09] LABS: BASOPHILS % (AUTO) 0.5 % (0.0-2.0); EOSINOPHILS # (AUTO) 0.7 K/uL (0-0.4); EOSINOPHILS % (AUTO) 7.7 % (0.0-4.0); HEMATOCRIT 37.1 % (36-48); HEMOGLOBIN 12.3 g/dL (12.0-16.0); LYMPHOCYTES # (AUTO) 2.1 K/uL (2.5-16.5); LYMPHOCYTES % (AUTO) 23.2 % (20.5-51.1); MEAN CORPUSCULAR HEMOGLOBIN 28 pg (27-31); MEAN CORPUSCULAR HGB CONC 33 g/dL (33-37); MEAN CORPUSCULAR VOLUME 83.6 fL (80-94); MONOCYTES # (AUTO) 0.8 K/uL (0.8-1.0); MONOCYTES % (AUTO) 8.8 % (1.7-9.3); NEUTROPHILS # (AUTO) 5.3 K/uL (1.8-7.7); NEUTROPHILS % (AUTO) 59.8 % (42.2-75.2); PLATELET COUNT (AUTO) 274 K/uL (140-450); RED BLOOD CELL COUNT(AUTO) 4.44 MIL/uL (4.20-5.40); WHITE BLOOD COUNT (AUTO) 8.9 K/uL (4.8-10.8)
[2023-10-25 06:19] LABS: ANION GAP 8.4 (8-16); CALCIUM 8.7 mg/dL (8.5-10.1); CARBON DIOXIDE 28.5 mmol/L (21-32); CREATININE 0.6 mg/dL (0.6-1.3); POTASSIUM 3.9 mmol/L (3.5-5.1); TOTAL BILIRUBIN 0.2 mg/dL (0.0-1.0); TOTAL PROTEIN, SERUM 5.9 g/dL (6.4-8.2)
[2023-10-25 09:16] VITALS: BP 152/64; PULSE 70; RESP 18; TEMP 97; O2SAT 97
[2023-10-25 09:42] VITALS: BP 152/64; PULSE 70; RESP 18; TEMP 97
[2023-10-25] MEDS ORDERED: AMLO10TA89 PO (11:21)
[2023-10-25] MEDS ORDERED: LEVO750T75 PO (11:21)
== END 2023-10-25 15:20 | disposition home health service (06) | DRG 391 ==
LOC: MED 15:07 → MMU 16:58 → MTU 10-23 00:13
PROVIDERS: ADMIT Student in an Organized Health Care Education/Training Program; ATTEND Student in an Organized Health Care Education/Training Program
DX: K59.09 Other constipation (principal); E43 Unspecified severe protein-calorie malnutrition; I16.9 Hypertensive crisis, unspecified; N39.0 Urinary tract infection, site not specified; Z20.822 Contact with and (suspected) exposure to COVID-19; I10 Essential (primary) hypertension; K21.9 Gastro-esophageal reflux disease without esophagitis; E11.9 Type 2 diabetes mellitus without complications; Z79.899 Other long term (current) drug therapy; Z68.36 Body mass index [BMI] 36.0-36.9, adult
CPT/HCPCS: 36415; 71045; 80048; 80053; 81001; 82948; 83036; 83605; 83880; 84443; 84484; 85025; 87040; 87081; 87086; 93005; 96365; 96375; 97110; 97112; 97163-GP; 97530; 99285; C9113; J1815; J1885; J1956; J2270; J2405

== ENCOUNTER 2023-12-11 06:45 | Emergency (ER) | payer OTHER, MEDICAID ==
[~2023-12-11] VITALS: Ht 157.5 cm; Wt 93.0 kg
[2023-12-11 06:45] VITALS: BP 148/56; PULSE 90; RESP 17; TEMP 98; O2SAT 96
[~2023-12-11 06:45] MED LIST changes: -ACET-10509 PO; +AMLO10TA89 PO; -ASPI-1822 PO; -LACT-103 PO; +LEVO750T75 PO; -SULF-59 PO
[2023-12-11 06:53] VITALS: O2SAT 99
[2023-12-11] MEDS: KETOROLAC 60 MG/2 ML VIAL IM ONE (07:54)
[2023-12-11] MEDS ORDERED: CIPR500T4 PO (08:04)
[2023-12-11] MEDS: ONDANSETRON 4 MG ODT PO ONE ×2 (08:24→15:11)
[2023-12-11] MEDS: MORPHINE SULFATE 4 MG/ML SYR IM ONE ×2 (08:30→15:18)
[2023-12-11] MEDS ORDERED: MORPHINE SULFATE 4 MG/ML SYR ONE (13:58)
[2023-12-11 17:23] VITALS: BP 130/52; PULSE 64; RESP 18; TEMP 98; O2SAT 96
== END 2023-12-11 17:23 ==
LOC: MED 06:45
DX: N39.0 Urinary tract infection, site not specified (principal); M79.10 Myalgia, unspecified site; I11.9 Hypertensive heart disease without heart failure; K21.9 Gastro-esophageal reflux disease without esophagitis; E11.9 Type 2 diabetes mellitus without complications; Z88.0 Allergy status to penicillin
CPT/HCPCS: 81002; 87086; 87186; 96372; 99285; J1885; J2270; Q0162